=== PATIENT | male | born 1955 | race Two or more races ===

== ENCOUNTER 2021-04-28 20:55 | Emergency (ER) | payer MEDICAID, OTHER ==
[~2021-04-28] VITALS: Ht 172.7 cm; Wt 83.9 kg
[2021-04-28] MEDS ORDERED: ONDANSETRON HCL 4 MG/2 ML VIAL IV ONE (21:15)
[2021-04-28] MEDS ORDERED: HYDROmorphone HCL 2 MG/ML VL IV ONE (21:15)
[2021-04-28] MEDS ORDERED: SODIUM CHLORIDE 0.9% 1,000 ML IV ONE (21:15)
[2021-04-28 21:44] LABS: Basophils # (auto) 0 10 ^3/uL (0-0.2); Basophils % (auto) 0.4 % (0.0-2.0); Eosinophils # (auto) 0.1 10 ^3/uL (0-0.8); Mean Corpuscular Hemoglobin 26.8 pg (28.0-32.0); Neutrophils # (auto) 10.8 10 ^3/uL (1.6-8.6); White Blood Cell 11.9 10^3/uL (4.4-10.8)
[2021-04-28 21:45] LABS: Eosinophils % (auto) 1.1 % (0.0-7.0); Hematocrit 33.9 % (41.0-53.0); Hemoglobin 11.2 g/dL (13.5-17.5); Lymphocytes # (auto) 0.5 10 ^3/uL (0.4-5.4); Lymphocytes % (auto) 4.4 % (10.0-50.0); Mean Corpuscular Hgb Conc. 33.1 g/dL (32.0-36.0); Mean Corpuscular Volume 80.8 fL (80.0-100.0); Monocytes # (auto) 0.3 10 ^3/uL (0-1.3); Monocytes % (auto) 2.9 % (0.0-12.0); Neutrophils % (auto) 91.2 % (37.0-80.0); Red Cell Distribution Width 14.8 % (11.8-14.3)
[2021-04-28 22:01] LABS: Calcium 9.3 mg/dL (8.5-10.1); Magnesium 2.3 mg/dL (1.6-2.6)
[2021-04-28 22:02] LABS: Lactic Acid w/Reflex 3.3 mmol/L (0.4-2.0)
[2021-04-28 22:04] LABS: Bilirubin, Total 0.3 mg/dL (0.2-1.0); Total Protein 7.6 g/dL (6.4-8.2)
[2021-04-28] MEDS ORDERED: IOHEXOL 300 MG/ML 100ML BOTTLE IJ ONE (22:26)
[2021-04-29 00:23] LABS: INR 1.1 (0.9-1.15)
[2021-04-29] MEDS ORDERED: HYDROmorphone HCL 2 MG/ML VL IV ONE ×5 (00:45→19:45)
[2021-04-29] MEDS ORDERED: PIPERACILLIN-TAZOB 3.375GM 100 ML IV ONE (01:15)
[2021-04-29] MEDS ORDERED: VANCOMYCIN 1GM/250ML 250 ML IV ONE (01:15)
[2021-04-29] MEDS ORDERED: SODIUM CHLORIDE 0.9% 1,000 ML IV ONE (01:15)
[2021-04-29] MEDS ORDERED: ONDANSETRON HCL 4 MG/2 ML VIAL IV ONE ×3 (08:45→19:45)
[2021-04-30] MEDS: ONDANSETRON HCL 4 MG/2 ML VIAL IV PRN ×3 (00:25→12:25)
[2021-04-30] MEDS: HYDROmorphone HCL 2 MG/ML VL IV PRN ×3 (00:25→12:25)
[2021-04-30] MEDS ORDERED: SODIUM CHLORIDE 0.9% 1,000 ML IV SCH (06:45)
[2021-04-30] MEDS ORDERED: VANCOMYCIN PER PHARMACY 0 MG IV SCH (06:45)
[2021-04-30] MEDS ORDERED: VANCOMYCIN 1GM/250ML 250 ML IV ONE (07:00)
[2021-04-30 08:04] LABS: Vancomycin, Peak < 2.0 ug/mL (18-26); Vancomycin,Trough < 2.0 ug/mL (10-20)
[2021-04-30] MEDS ORDERED: PIPERACILLIN-TAZOB 3.375GM 100 ML IV SCH (10:00)
[2021-04-30 12:25] VITALS: BP 122/58
[2021-04-30] MEDS ORDERED: VANCOMYCIN 1GM/250ML 250 ML IV SCH (21:00)
== END 2021-04-30 14:41 | disposition home or self-care (01) ==
LOC: EDBD 20:55 → ER 20:55
DX: R10.31 Right lower quadrant pain (principal); E87.2 Acidosis; Z90.49 Acquired absence of other specified parts of digestive tract; Z20.822 Contact with and (suspected) exposure to COVID-19
CPT/HCPCS: 36415; 74018; 74176; 80053; 80202; 83605; 83690; 83735; 85025; 85610; 87040; 87426; 96361; 96365; 96366; 96368; 96375; 96376; 99285; J1170; J2405; J2543; J3370